=== PATIENT | female | born 1985 | race African-American/Black ===

== ENCOUNTER 2022-09-04 12:51 | Emergency (ER) | payer OTHER ==
[~2022-09-04] VITALS: Ht 165.1 cm; Wt 52.0 kg
[2022-09-04] MEDS ORDERED: ALBUTEROL (0.083%) 2.5MG/3ML NEB HHN STA ×2 (13:08→15:15)
[2022-09-04] MEDS ORDERED: IPRATROPIUM BROMIDE (0.02%) 0.5MG/2.5ML NEB HHN STA (13:08)
[2022-09-04] MEDS ORDERED: METHYLPREDNISOLONE SOD SUCC 125 MG/2 ML VIAL IV STA (13:08)
[2022-09-04] MEDS ORDERED: MAGNESIUM 2 G PREMIX 50 ML IV ONE (14:30)
[2022-09-04 14:44] LABS: BASOPHILS % 0.3 % (0.0-2.0); EOSINOPHILS % 0.3 % (0.0-5.0); HEMATOCRIT. 35.1 % (36.0-48.0); HEMOGLOBIN. 11.8 g/dL (12.0-16.0); LYMPHOCYTES % 17.8 % (20.0-50.0); MEAN CORPUSCULAR HEMOGLOBIN 29.7 pg (28.0-32.0); MEAN CORPUSCULAR VOLUME 88.2 fL (81.0-99.0); MEAN PLATELET VOLUME 8.7 fl (7.4-10.4); MONOCYTES % 8.1 % (2.0-8.0); NEUTROPHILS % 73.5 % (40.0-76.0); PLATELET 109 x1000/uL (130-400); RED BLOOD CELL COUNT 3.98 mill/uL (4.2-5.4); RED CELL DISTRIBUTION WIDTH 13.1 % (11.6-14.6)
[2022-09-04 14:53] LABS: CHLORIDE 106 mEq/L (98-107)
[2022-09-04 15:26] LABS: HCG SCREEN NEGATIVE
[2022-09-04] MEDS ORDERED: KCL 20MEQ/100ML PREMIX 100 ML IV ONE (15:45)
[2022-09-04] MEDS ORDERED: POTASSIUM CHLORIDE 20MEQ TABLET SR PO ONE (15:45)
[2022-09-04 16:16] LABS: BG BASE EXCESS -5.5 mmol/L (-2.0-2.0); BG CARBOXYHEMOGLOBIN 0.3 % (0.5-1.5); BG DEOXYHEMOGLOBIN 1.3 % (0.0-5.0); BG FRACTION INSPIRED OXYGEN 30; BG METHEMOGLOBIN 0.4 % (0.0-1.5); BG OXYGEN SATURATION 98.7 % (92.0-98.5); BG PCO2 29.4 mmHg (35.0-45.0); BG PH 7.404 (7.350-7.450); BG PO2 130.9 mmHg (75.0-100.0); BG SAMPLE SITE RIGHT RADIAL; BG TOTAL HEMOGLOBIN 12.8 g/dL (12.0-18.0); BG VENT MODE MASK - BIPAP
[2022-09-04] MEDS ORDERED: METHYLPREDNISOLONE SOD SUCC 40 MG/ML VIAL IV SCH (17:00)
[2022-09-04] MEDS: IPRATROPIUM/ALBUTEROL 0.5-3(2.5)MG/3ML NEB HHN SCH ×2 (19:30→23:43)
[2022-09-04 22:00] VITALS: BP 113/58
== END 2022-09-04 23:45 | disposition left against medical advice (07) ==
LOC: ER 13:25 → EDBEDREQTM 16:22 → EDBEDREQ 16:22 → EDBEDREQSVC 16:22 → ER 23:45 → CANBEDREQ 09-05 21:26
DX: J45.902 Unspecified asthma with status asthmaticus (principal); E87.6 Hypokalemia; Z20.822 Contact with and (suspected) exposure to COVID-19; Z99.89 Dependence on other enabling machines and devices
CPT/HCPCS: 36415; 36600; 71045; 80053; 82375; 82805; 84703; 85025; 87426; 93005; 94640; 96365; 96367; 96375; 99291; C9803; J2920; J2930; J3475; J3480; 94660